=== PATIENT | male | born 1970 | race Caucasian/White ===

== ENCOUNTER 2016-12-02 18:45 | Emergency (ER) | payer OTHER ==
[~2016-12-02] VITALS: Ht 180.3 cm; Wt 108.9 kg
[~2016-12-02 18:45] MED LIST: NAPROSYN500 M1 PO; NORCO 5-325 TA1 EACH PO; ORPHENADRINE C100 MG PO; VICODIN 300 MG-1 TAB PO
[2016-12-02 19:08] VITALS: BP 154/98
--- NOTE | 2016-12-02 21:27 | ED INFLUENZA/URI COMPLAINT ---
History of Present Illness General Chief Complaint: General Adult Stated Complaint: FEVER BODY ACHES Source: patient Exam Limitations: no limitations Vital Signs & Intake/Output Vital Signs & Intake/Output Vital Signs Date Time Temp Pulse Resp B/P B/P Pulse O2 O2 Flow FiO2 Mean Ox Delivery Rate 12/029 Room Air 12/02 1908 100.0 99 18 154/98 97 Room Air ED Intake and Output 12/03 0000 12/02 1200 Intake Total Output Total Balance Patient 240 lb Weight Weight Reported by Patient Measurement Method Allergies Coded Allergies: NO KNOWN ALLERGIES (12/30/10) Reconcile Medications Hydrocodone/Acetaminophen ([place] 5-325 Tablet) 1 EACH TABLET 1-2 TAB PO Q6P PRN PAIN HYDROCODONE/ACETAMINOPHEN (Vicodin 5-300 MG Tablet) 1 TAB TAB 1 TAB PO Q4-6HR PRN PAIN Ketorolac Tromethamine 10 MG TABLET 1 TAB PO TID PRN PAIN RECEIVED IM IN ER Naproxen (Naprosyn) 500 MG TABLET 1 TAB PO BID PRN PAIN Orphenadrine Citrate 100 MG TABLET.ER 1 TAB PO BID PRN MUSCLE PAIN/SPASMS Triage Note: PT TO ED C/O FEVER AND BODY ACHES SINCE YESTERDAY. DENIES COUGH, DENIES SORE THROAT. TEMP 100.0 IN TRIAGE. TOOK 800 MG ADVIL AT 1700. Triage Nurses Notes Reviewed? yes Onset: Gradual Duration: constant Timing: recent history Severity: moderate Severity Numbers: 5 HPI: Patient is a 45-year-old male with past medical history of hypertension who presents to emergency room with a 24-hour history of gradual onset of fever chills denies weakness and fatigue not feeling well body aches and muscle aches. Patient denies any neck pain neck stiffness cough ear pain sore throat shortness of breath abdominal pain nausea vomiting rash. Denies any similar sick contacts (HEIDE MATA) Past History Travel History Traveled to [place] past 21 day No Medical History Any Pertinent Medical History? see below for history Cardiovascular: hypertension Musculoskeletal: SEE hpi Surgical History Surgical History: non-contributory Psychosocial History What is your primary language Montenegrin Tobacco Use: Never used ETOH Use: denies use Illicit Drug Use: denies illicit drug use Family History Family History, If Any: MOTHER FH: hypertension, Onset: 60+. Hx Contributory? No (HEIDE MATA) Review of Systems Review of Systems Constitutional: Reports: see HPI, chills, malaise. EENTM: Reports: no symptoms. Respiratory: Reports: no symptoms. Cardiovascular: Reports: no symptoms. GI: Reports: no symptoms. Genitourinary: Reports: no symptoms. Musculoskeletal: Reports: see HPI, joint pain, muscle pain. Skin: Reports: no symptoms. Neurological/Psychological: Reports: no symptoms. Hematologic/Endocrine: Reports: no symptoms. Immunologic/Allergic: Reports: no symptoms. All Other Systems: Reviewed and Negative (HEIDE MATA) Physical Exam Physical Exam General Appearance: no apparent distress, alert, comfortable Ears, Nose, Throat: normal ENT inspection, moist mucous membrane, hearing grossly normal, Tympanic normal Comments: Well-developed well-nourished person in no acute distress HEENT: Normal EENT exam, extraocular motion intact, no nystagmus. Pupils equally round and reactive to light and accommodation. Nose is atraumatic. External auditory canal and Tympanic membranes clear. Pharynx normal. No swelling or edema. Neck: Supple, no lymphadenopathy, normal range of motion without pain or tenderness Back: Nontender, no CVA tenderness. Cardiovascular: Regular rate and rhythms no murmurs rubs or gallops, normal JVP Respiratory: Chest nontender. No respiratory distress.breath sounds clear to auscultation bilaterally Abdomen: Soft, nontender nondistended, no appreciable organomegaly. Normal bowel sounds. No ascites Extremity: No edema, no calf tenderness to palpation, normal and equal pulses. Neuro: Alert oriented x3, motor sensory normal, Skin: No appreciable rash on exposed skin, skin is warm and dry. Psych: Mood and affect is normal, memory and judgment is normal. Core Measures Severe Sepsis Present: No Septic Shock Present: No (HEIDE MATA) Progress Differential Diagnosis: influenza, meningitis, neutropenia, otitis, pneumonia, pharyngitis, sinusitis Plan of Care: Current Medications Sig/Loni Start time Last Medication Dose Stop Time Status Admin Acetaminophen 650 MG ONCE ONE 12/02 2144 UNVr (Tylenol) 12/02 2145 Ketorolac 30 MG ONCE ONE 12/02 2144 UNVr Tromethamine 12/02 2145 (Toradol) Patient had unremarkable physical exam Denies any ENT or respiratory symptoms or cardiovascular or abdominal symptoms. Patient will be treated for concerns of viral syndrome. Patient upon discharge was afebrile nontoxic-appearing and had nontender abdomen (HEIDE MATA) Initial ED EKG: none (HEIDE MATA) Departure Departure Disposition: HOME OR SELF CARE Condition: Stable Clinical Impression Primary Impression: Viral syndrome Referrals: SAMIA PENN MD (PCP/Family) Additional Instructions: DISCUSSED BEGIN the prescription for ketorolac for pain and inflammation. Begin [id number] Tylenol for fevers. Prescriptions waiting a [facility] pharmacy. If symptoms worsen return to emergency room. If no better on Monday follow up with her primary care doctor. Begin checking PLENTY OF water for hydration Departure Forms: Customer Survey General Discharge Information Prescriptions: Current Visit Scripts Ketorolac Tromethamine 1 TAB PO TID PRN PAIN #15 TAB RECEIVED IM IN ER (HEIDE MATA) PA/BLACKTOP SPREADER Co-Sign Statement Statement: ED Attending supervision documentation- [] I saw and evaluated the patient. I have also reviewed all the pertinent lab results and diagnostic results. I agree with the findings and the plan of care as documented in the PA's/BLACKTOP SPREADER's documentation. [x] I have reviewed the ED Record and agree with the PA's/BLACKTOP SPREADER's documentation. [] Additions or exceptions (if any) to the PAs/BLACKTOP SPREADER's note and plan are summarized below: [] (RU SMITH,TASHIA Carroll)
[2016-12-02] MEDS ORDERED: KETOROLAC TROME10 M1 PO (21:43)
== END 2016-12-02 21:58 ==
LOC: ERH 18:45
DX: B34.9 Viral infection, unspecified (principal)
CPT/HCPCS: 96372; J1885

== ENCOUNTER 2017-12-17 12:35 | Observation (INO) | payer OTHER ==
[~2017-12-17] VITALS: Ht 180.3 cm; Wt 115.2 kg
[~2017-12-17 12:35] MED LIST changes: +KETOROLAC TROME10 M1 PO
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
--- NOTE | 2017-12-17 13:05 | CT SCAN REPORT ---
EXAMINATION: CT HEAD WITHOUT CONTRAST CLINICAL INFORMATION: Seizure. COMPARISON: None TECHNIQUE: Contiguous axial imaging was performed from the skull base to vertex without intravenous administration of contrast. DLP: 643.96 mGy-cm FINDINGS: There is no evidence of acute intracranial hemorrhage or territorial infarction. No abnormal mass effect or midline shift is seen. Rosales to white matter differentiation is well preserved. No extra-axial fluid collections are identified. The ventricles are normal in size. There is no abnormal attenuation within the brain parenchyma. The osseous structures and soft tissues are normal. The mastoid air cells are well aerated. Incidental note is made of complete opacification associated with sclerosis of the visualized part of the right maxillary sinus, most consistent with chronic right maxillary sinusitis. IMPRESSION: No acute intracranial pathology. Partially included right maxillary sinus shows features most consistent with chronic right maxillary sinusitis.
[2017-12-17 13:09] LABS: ABSOLUTE BASOPHIL COUNT 0 /CUMM (0.0-0.2); ABSOLUTE EOSINOPHIL COUNT 0.4 /CUMM (0.0-0.7); ABSOLUTE GRANULOCYTE CT 4.3 /CUMM (1.4-6.5); ABSOLUTE LYMPH COUNT 2.9 /CUMM (1.2-3.4); ABSOLUTE MONOCYTE COUNT 0.8 /CUMM (0.10-0.60); BASOPHIL % 0.6 % (0.0-2.0); EOSINOPHIL % 4.6 % (0-5); GRANULOCYTE % 50.9 % (42.2-75.2); HEMATOCRIT 49.5 % (42-52); MEAN CORPUSCULAR HGB 31.5 PG (27.0-31.0); MEAN CORPUSCULAR HGB CONC 34.1 G/DL (33.0-37.0); MEAN CORPUSCULAR VOLUME 92.3 FL (80.0-94.0); MEAN PLATELET VOLUME 8.4 FL (7.4-10.4); PLATELET COUNT 272 /CUMM (130-400); RBC DISTRIBUTION WIDTH 13.5 % (11.5-14.5); RED BLOOD CELL CT 5.36 /CUMM (4.70-6.10); WHITE BLOOD CELL COUNT 8.5 /CUMM (4.8-10.8)
--- NOTE | 2017-12-17 13:55 | RADIOLOGY REPORT ---
EXAMINATION: XR PORTABLE CHEST CLINICAL INFORMATION: Chest pain. COMPARISON: Chest done on 04/30/2014. TECHNIQUE: Portable frontal view of the chest was obtained. FINDINGS: Low lung volume is present bilaterally. Both lungs are clear. The cardiac mediastinal silhouette is within normal limits. There is no pleural effusion or pneumothorax present. The visualized upper abdomen is unremarkable. IMPRESSION: Low lung volume, otherwise unremarkable.
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
[2017-12-17] MEDS ORDERED: LISINOPRIL20 M1 PO (14:52)
[2017-12-17] MEDS ORDERED: ACETAMINOPHEN500 M4 PO (14:53)
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
[2017-12-17 16:30] VITALS: BP 162/103
[2017-12-17 20:48] VITALS: BP 141/100
[2017-12-18 06:19] VITALS: BP 112/78
[2017-12-18 07:57] LABS: ABSOLUTE BASOPHIL COUNT 0 /CUMM (0.0-0.2); ABSOLUTE EOSINOPHIL COUNT 0.3 /CUMM (0.0-0.7); ABSOLUTE GRANULOCYTE CT 4.8 /CUMM (1.4-6.5); ABSOLUTE LYMPH COUNT 1.9 /CUMM (1.2-3.4); ABSOLUTE MONOCYTE COUNT 0.7 /CUMM (0.10-0.60); BASOPHIL % 0.4 % (0.0-2.0); EOSINOPHIL % 3.7 % (0-5); GRANULOCYTE % 62.4 % (42.2-75.2); HEMATOCRIT 46.8 % (42-52); MEAN CORPUSCULAR HGB 31.4 PG (27.0-31.0); MEAN CORPUSCULAR HGB CONC 33.8 G/DL (33.0-37.0); MEAN CORPUSCULAR VOLUME 92.8 FL (80.0-94.0); MEAN PLATELET VOLUME 8.5 FL (7.4-10.4); PLATELET COUNT 235 /CUMM (130-400); RBC DISTRIBUTION WIDTH 13.8 % (11.5-14.5); RED BLOOD CELL CT 5.05 /CUMM (4.70-6.10); WHITE BLOOD CELL COUNT 7.7 /CUMM (4.8-10.8)
--- NOTE | 2017-12-18 08:00 | PN- Housestaff ---
Kahlil SMITH,Chidi 12/18/17 0800: Subjective Follow-up For: New Onset Seizures Shoulder Pain Subjective: Patient was seen and examined today No further seizure like activity Reports left shoulder pain, numbness and tingling - prior to the seizures Fiance reports patient has a mild rash - patient denies itching Reports mild headache. Denies any other complaints. Review of Systems Constitutional: Reports: see HPI. Objective Last 24 Hrs of Vital Signs/I&O Vital Signs Date Time Temp Pulse Resp B/P B/P Pulse O2 O2 Flow FiO2 Mean Ox Delivery Rate 12/18 1421 97.8 68 20 116/76 95 Room Air 12/18 0802 56 112/78 12/18 0800 95 Room Air Room Air 12/18 0619 97.5 54 20 112/78 94 12/18 0015 91 95 12/18 0000 95 CPAP 12/17 2219 Nasal 1.5L Cannula 12/18 2047 97.8 52 20 141/100 96 12/17 2041 52 141/100 12/17 1918 78 96 Intake & Output 12/18 1600 12/18 0800 12/18 0000 Intake Total 800 120 200 Output Total Balance 800 120 200 Intake, Oral 800 120 200 Patient 254 lb Weight Physical Exam General Appearance: Alert, Oriented X3, Cooperative, No Acute Distress Skin: mild diffuse rash on chest and back Skin Temp/Moisture Exam: Warm/Dry HEENT: Atraumatic, PERRLA, EOMI, Mucous Membr. moist/pink Cardiovascular: Regular Rate, Normal S1, Normal S2, No Murmurs Lungs: Clear to Auscultation, Normal Air Movement Abdomen: Normal Bowel Sounds, Soft, No Tenderness Neurological: Normal Gait, Normal Speech, Strength at 5/5 X4 Ext, Normal Tone, Sensation Intact, Cranial Nerves 3-12 NL, Reflexes 2+ Extremities: No Clubbing, No Cyanosis, No Edema, Normal Pulses, No Tenderness/ Swelling Current Medications: Current Medications Sig/Loni Start time Last Medication Dose Route Stop Time Status Admin Acetaminophen 650 MG Q6P PRN 12/17 1545 AC 12/17 PO 1647 Enoxaparin Sodium 40 MG DAILY 12/18 0900 AC 12/18 SC 0802 Ibuprofen 600 MG Q6P PRN 12/18 1500 AC PO Levetiracetam 500 MG BID 12/17 2100 AC 12/18 PO 0802 Lisinopril 20 MG DAILY 12/17 192 AC 12/18 PO 0802 Last 24 Hrs of Lab/Harsh Results Last 24 Hrs of Labs/Mics: Laboratory Tests 12/18/17 0649: Anion Gap 12, Estimated GFR > 60, BUN/Creatinine Ratio 13.0, CBC w Diff NO MAN DIFF REQ, RBC 5.05, MCV 92.8, MCH 31.4 H, MCHC 33.8, RDW 13.8, MPV 8.5, Gran % 62.4, Lymphocytes % 25.1, Monocytes % 8.4, Eosinophils % 3.7, Basophils % 0.4, Absolute Granulocytes 4.8, Absolute Lymphocytes 1.9, Absolute Monocytes 0.7 H, Absolute Eosinophils 0.3, Absolute Basophils 0 12/17/172199: Lactic Acid Cancelled 12/17/171950: Lactic Acid 1.2 Assessment/Plan Assessment: 47-year-old man with only reported past medical history of hypertension brought in by ambulance for new seizure activity. On admission: His vital signs are significant for elevated systolic blood pressure ranging 164 -174. On exam: no focal neurological findings Labs: CBC, serum chemistry, hepatic function panel, urinalysis, urine toxicology , EtOH level, troponin, and magnesium are unremarkable; significant labs include anion gap of 21 and prolactin of 26.5. EKG : sinus tachycardia CXR is unremarkable. CT head without IV contrast demonstrates no acute intracranial pathology. In the ED patient received 500 mg of IV Keppra in the ED. Patient was seen by neurology yesterday and received a loading dose of Keppra followed by 500mg BID. Patient has had no further seizure like activity. The etiology of the patient's seizures are unclear. He has a family history of epilepsy and previous history of trauma however no recent trauma. Work up negative for infectious/toxic causes. His CT scan was negative. An MRI was done today however patient refused contrast so the study was limited however there was a focal area of abnormal signal in T2 image in the frontal area. EEG was performed. Further input from neurology is pending. Patient today reports left shoulder and neck pain and numbness and tingling. Xray of the shoulder and neck show arthritic changes. Problems New onset tonic-clonic seizures Anion gap metabolic acidosis - resolved Arthritis Hypertension Obesity Obstructive sleep apnea Plan Continue on general medicine observation to monitor for seizure activity Seizure precautions Continue Keppra 500 mg p.o. twice daily Continue lisinopril Follow up EEG results Neurology consult for new onset seizure activity Pain control with acetaminophen and ibuprofen Regular diet DVT prophylaxis with Lovenox Full code Problem List: 1. New onset seizure Pain Ratin Pain Location: shoulder, neck Pain Goal: Pain 7 or less Pain Plan: ibuprofen tylenol Tomorrow's Labs & Rationales: none Angeline SMITH,Yudiriccardo 12/18/17 1153: Attending MD Review Statement Attending Statement Attending MD Statement: examined this patient, discuss w/resident/PA/FIREWOOD CUTTER, agreed w/resident/PA/FIREWOOD CUTTER, discussed with family, reviewed EMR data (avail), discussed with nursing, discussed with case mgmt, amended to note Attending Assessment/Plan: Patient is a middle-aged gentleman admitted following for seizure episode. No prior history of seizures. No prior history of trauma. Not on any seizure threshold lowering medications. Scheduled for an MRI of the brain today for further evaluation as recommended by the neurology service. On examination today he is alert and oriented 3 and has no focal neurologic deficits. He has no further seizures overnight he may be discharged home tomorrow on follow-up with the neurology service in the outpatient. Patient complains of left shoulder pain on occasion with tingling sensation in his left hand on and off. Reports occasional neck stiffness. On examination he has normal range of motion of the left shoulder and of the neck. No tenderness on examination. Recommend obtaining x-ray of the neck to rule out significant cervical osteoarthritis and x-ray of the shoulder.
--- NOTE | 2017-12-18 11:54 | MRI REPORT ---
MR BRAIN WITHOUT IV CONTRAST CLINICAL INFORMATION: Headaches and left arm pain. Tonic-clonic seizure. COMPARISON: Head CT 12/17/2017. TECHNIQUE: MRI of the brain without contrast was obtained using routine sequences. FINDINGS: Limited motion degraded MRI of the brain. The patient refused contrast for this study. There is no hydrocephalus, extra-axial surface collection, or herniation. Single nonspecific small focus of increased signal on T2-weighted imaging within the left frontal subcortical white matter. The major flow voids at the skull base are preserved. There is no acute infarct on diffusion-weighted imaging. There is no intracranial hemorrhage on the gradient recalled echo acquisition. The midline structures are normal. The cerebellar tonsils are normally positioned. The cerebellum and brainstem are normal. The craniocervical junction is normal. Osseous marrow signal intensity is homogenous. The visualized soft tissues are unremarkable. The right maxillary sinus is again noted to be completely opacified and exhibits the sequela of chronic sinusitis. IMPRESSION: - Limited motion degraded MRI of the brain. The patient refused contrast for this study. - Single nonspecific small focus of increased signal on T2-weighted imaging within the left frontal subcortical white matter. No additional parenchymal signal abnormality accounting for artifact and no space-occupying lesions. No mesial temporal sclerosis. - The right maxillary sinus is again noted to be completely opacified and exhibits the sequela of chronic sinusitis.
[2017-12-18] MEDS ORDERED: KEPPRA500 M1 PO (13:16)
--- NOTE | 2017-12-18 13:18 | Patient Discharge Instructions ---
Discharge Instructions General Discharge Information You were seen/treated for: Seizures Special Instructions: 1. Please follow up with your pcp within 1 week of discharge 2. Please follow up with the neurologist within 1 week of discharge 3. Please take the medication as prescribed Please note that you CANNOT drive for the next 6 months as you are at risk for seizure and require clearance from your neurologist after you have been on medication and seizure free. Acute Coronary Syndrome Inclusion Criteria At DC or during hospital stay patient has or had the following: ACS DIAGNOSIS No Discharge Core Measures Meds if any: Prescribed or Continued at Discharge Meds if any: NOT Prescribed or Continued at Discharge Congestive Heart Failure Inclusion Criteria At DC or during hospital stay patient has or had the following: CHF DIAGNOSIS No Discharge Core Measures Meds if any: Prescribed or Continued at Discharge Meds if any: NOT Prescribed or Continued at Discharge Cerebrovascular accident Inclusion Criteria At DC or during hospital stay patient has or had the following: CVA/TIA Diagnosis No Discharge Core Measures Meds if any: Prescribed or Continued at Discharge Meds if any: NOT Prescribed or Continued at Discharge Venous thromboembolism Inclusion Criteria VTE Diagnosis No VTE Type NONE VTE Confirmed by (Test) NONE Discharge Core Measures - Per Current guidelines, there needs to be overlap - treatment for the first 5 days of Warfarin therapy. - If discharged on Warfarin prior to 5 days of - overlap therapy, the patient will need to be - assessed for post discharge needs including - *Post discharge parental anticoagulation - *Warfarin and/or parental anticoagulation education - *Follow up date to check INR post discharge At least 5 days overlap therapy as Inpatient No Meds if any: Prescribed or Continued at Discharge Note: Overlap Therapy is Warfarin and Anticoagulant Meds if any: NOT Prescribed or Continued at Discharge
--- NOTE | 2017-12-18 13:34 | RADIOLOGY REPORT ---
EXAMINATION: XR CERVICAL SPINE XR SHOULDER, LEFT CLINICAL INFORMATION: 47-year-old male, presented with numbness, tingling involving the left shoulder, status post seizure. COMPARISON: None TECHNIQUE: 3 views of the cervical spine and 4 views of the left shoulder were obtained. FINDINGS: CERVICAL SPINE: The height and alignment of the cervical vertebrae is well maintained. The posterior appendages are intact. Mild endplate osteophyte formations, consistent with mild spondylosis-related changes are noted at C5-C6 and C6-C7. Incidental note is made of ligamentous nuchae calcification overlying the spinous process of C5. The prespinal soft tissues are unremarkable. The C1-C2 alignment is intact. LEFT SHOULDER: The bony alignment is intact. Subtle cortical radiolucencies are noted within the osseous glenoid. A small well-corticated apparent bony fragment is seen projecting over the glenoid process, seen only on the axial view, may represent old injury. Followup CT scan of the left shoulder may be considered for further full detailed evaluation, if clinically appropriate. IMPRESSION: 1. Mild multilevel degenerative spondylosis of lower cervical spine. No radiographic evidence of any acute posttraumatic changes. 2. The osseous glenoid appears irregular. There is a well-corticated apparent bony fragment identified, seen only in one projection which may represent old injury. A followup CT scan of the left shoulder may be considered for further full detailed evaluation, if clinically appropriate.
[2017-12-18 14:21] VITALS: BP 116/76
--- NOTE | 2017-12-18 14:45 | ELECTROENCEPHALOGRAM REPORT ---
Electroencephalogram Report Electroencephalogram Results Date of service: 12/18/17 Attending MD: Mona Marcus MD Piano Refinisher: Aamir Capone EEG Number: [id number] Test Utilizes: 10-20 system, 21 lead 18 channel digital recording Pertinent Hx/Physical/Neuro Findings/Clin Diagnosis: First seizure Inpatient Medications: Current Medications Sig/Loni Start time Last Medication Dose Route Stop Time Status Admin Acetaminophen 650 MG Q6P PRN 12/17 1545 AC 12/17 PO 1647 Enoxaparin Sodium 40 MG DAILY 12/18 0900 AC 12/18 SC 0802 Levetiracetam 500 MG BID 12/17 2100 AC 12/18 PO 0802 Levetiracetam 500 MG ONCE ONE 12/17 1545 DC 12/17 N/A 1 UNIT IV 12/17 1559 1609 Lisinopril 20 MG DAILY 12/17 1921 AC 12/18 PO 0802 Interpretation: The waking background is low to moderate 10 hz posterior alpha and low amplitude frontal beta. Most of the record reflects drowsiness and sleep with intermixed theta and delta activities, vertex waves, spindling and K complexes of sleep. No focal or epileptiform abnormalities are seen. Hyperventilation and photic stimulation were unremarkable. Impression: Normal in the states of wakefulness, drowsiness and sleep.
[2017-12-18 22:16] VITALS: BP 100/60
[2017-12-19 06:38] VITALS: BP 114/67
--- NOTE | 2017-12-19 07:49 | PN- Housestaff ---
Kahlil SMITH,Chidi 12/19/17 0749: Subjective Follow-up For: New Onset Seizures Shoulder Pain Subjective: Patient was seen and examined today. Patient reports continued shoulder pain. Did not have any ibuprofen today. Reports he has had naproxen in the past which has helped him and would like to try it today. No further seizure like activity reported by patient, his fiance or nursing staff. Review of Systems Constitutional: Reports: see HPI. Objective Last 24 Hrs of Vital Signs/I&O Vital Signs Date Time Temp Pulse Resp B/P B/P Pulse O2 O2 Flow FiO2 Mean Ox Delivery Rate 12/19 0638 97.4 53 20 114/67 96 CPAP 12/18 2216 98.2 74 20 100/60 100 12/18 2146 58 93 12/18 1421 97.8 68 20 116/76 95 Room Air 12/18 0802 56 112/78 12/18 0800 95 Room Air Room Air Intake & Output 12/19 0800 12/19 0000 12/18 1600 Intake Total 260 1080 800 Output Total Balance 260 1080 800 Intake, IV 20 Intake, Oral 240 1080 800 Physical Exam General Appearance: Alert, Cooperative, No Acute Distress Skin Temp/Moisture Exam: Warm/Dry HEENT: Atraumatic, Mucous Membr. moist/pink Cardiovascular: Regular Rate, Normal S1, Normal S2 Lungs: Clear to Auscultation, Normal Air Movement Abdomen: Normal Bowel Sounds, Soft, No Tenderness Extremities: full ROM of right arm and shoulder, pain with active and passive movement, no erythema or fluctation on exam, no tenderness with palpation Vascular: Normal Pulses, Pulses Symmetrical Current Medications: Current Medications Sig/Loni Start time Last Medication Dose Route Stop Time Status Admin Acetaminophen 650 MG Q6P PRN 12/17 1545 AC 12/17 PO 1647 Enoxaparin Sodium 40 MG DAILY 12/18 0900 AC 12/18 SC 0802 Ibuprofen 600 MG Q6P PRN 12/18 1500 AC PO Levetiracetam 500 MG BID 12/17 2100 AC 12/18 PO 204 Lisinopril 20 MG DAILY 12/17 1921 AC 12/18 PO 0802 Assessment/Plan Assessment: 47-year-old man with only reported past medical history of hypertension brought in by ambulance for new seizure activity. On admission: His vital signs are significant for elevated systolic blood pressure ranging 164 -174. On exam: no focal neurological findings Labs: CBC, serum chemistry, hepatic function panel, urinalysis, urine toxicology , EtOH level, troponin, and magnesium are unremarkable; significant labs include anion gap of 21 and prolactin of 26.5. EKG : sinus tachycardia CXR is unremarkable. CT head without IV contrast demonstrates no acute intracranial pathology. In the ED patient received 500 mg of IV Keppra in the ED. Patient was seen by neurology yesterday and received a loading dose of Keppra followed by 500mg BID. Patient has had no further seizure like activity. The etiology of the patient's seizures are unclear. He has a family history of epilepsy and previous history of trauma however no recent trauma. Work up negative for infectious/toxic causes. His CT scan was negative. An MRI was done today however patient refused contrast so the study was limited however there was a focal area of abnormal signal in T2 image in the frontal area. EEG was performed which was reported as normal. Spoke to neurology today concerning the MRI finding. Per neurology this can be a normal variant and patient is okay to go home with follow up with neurology outpatient. Xray of the shoulder and neck show arthritic changes. Patient was given naproxen today which improved the pain. Note, patient and his fiance were repeatedly informed that patient cannot drive for the next 6 months until he is cleared by the neurologist. Patient was also given a work note and instructed not to operate any heavy machinery or combustible material. Problems New onset tonic-clonic seizures Anion gap metabolic acidosis - resolved Arthritis Hypertension Obesity Obstructive sleep apnea Plan Discharge home today Seizure precautions Continue Keppra 500 mg p.o. twice daily Continue lisinopril Follow up neurology outpatient Pain control with acetaminophen and naproxen Follow up with pcp and neurologist outpatient Regular diet DVT prophylaxis with Lovenox Full code Problem List: 1. New onset seizure Pain Ratin Pain Location: shoulder and neck Pain Goal: Pain 7 or less Pain Plan: tylenol naproxen Tomorrow's Labs & Rationales: none - dc today Mona Marcus MD 12/19/17 1028: Attending MD Review Statement Attending Statement Attending MD Statement: examined this patient, discuss w/resident/PA/ACCOUNTING OFFICER, agreed w/resident/PA/ACCOUNTING OFFICER, discussed with family, reviewed EMR data (avail), discussed with nursing, discussed with case mgmt, amended to note Attending Assessment/Plan: Patient seen and examined. No issues overnight reported by nursing staff. Remains afebrile and hemodynamically stable. Resting comfortably and not in any acute distress. No further seizure episodes. Alert and oriented x3. Ambulating freely. No seizure activity noted on EEG. MRI did show a small nonspecific focus that was reviewed with the neurology service. No further workup was recommended at present by the neurology service. Patient is medically stable to be discharged home today. He has been advised to be compliant with Keppra therapy. He has been advised to avoid heavy lifting, use of machinery or driving. He is to follow-up with the neurology service in the outpatient setting for further recommendations regarding this. X-ray of the neck shows multilevel degenerative spondylosis of the lower cervical spine. X-ray of the shoulder shows well-corticated bony fragments which may be due to an old injury. He has been advised to take [id number] pain relief medications. He has also been advised to follow-up with his primary care provider should symptoms persist.
[2017-12-19 08:05] VITALS: BP 114/67
[2017-12-19] MEDS ORDERED: KEPPRA500 M1 PO ×2 (10:02→10:04)
[2017-12-19] MEDS ORDERED: NAPROXEN500 M2 PO ×2 (10:02→10:04)
== END 2017-12-19 10:38 ==
LOC: ERH 12:35 → ERHI 14:30 → 2NB 14:30 → ENRESERV 15:24 → ENTRNSPT 15:56 → EDTRNSPT 16:08 → EDTRNSPTSTS 16:08 → 2NB 16:15 → CMPTRNSPT 16:24 → 2NB 16:25 → ENPENDDIS 12-19 09:55 → 2NB 12-19 10:38
PROVIDERS: Emergency Medicine; Internal Medicine Interventional Cardiology
DX: R56.9 Unspecified convulsions (principal); I10 Essential (primary) hypertension
CPT/HCPCS: 1288; 1328; 1748; 70551; 86618; 36415; 36592; 71045; 72040; 73030-LT; 80307; 81001; 82436; 93005; 93010; 95816; 96372; 96374; 96376; 99291; G0378; G0480; J1650; J1953